=== PATIENT | male | born 1970 | race Caucasian/White ===

== ENCOUNTER 2022-06-29 22:21 | Emergency (ER) | payer SELFPAY ==
[~2022-06-29] VITALS: Ht 180.3 cm; Wt 93.0 kg
[2022-06-30 00:13] VITALS: BP 141/86
[2022-06-30] MEDS ORDERED: CEPH500C2 PO (00:42)
[2022-06-30] MEDS ORDERED: SULF1TAB48 PO (00:42)
[2022-06-30] MEDS ORDERED: SULFAMETH/TRIMETH 800/160 MG 1 UDTAB TABLET ONE (00:44)
[2022-06-30] MEDS ORDERED: CEPHALEXIN MONOHYDRATE 500 MG CAPSULE PO ONE (00:44)
[2022-06-30] MEDS: SULFAMETH/TRIMETH 800/160 MG 1 UDTAB TABLET PO ONE (00:49)
[2022-06-30] MEDS: CEPHALEXIN MONOHYDRATE 500 MG CAPSULE PO ONE (00:49)
== END 2022-06-30 00:50 | disposition home or self-care (01) ==
LOC: ER 22:25
DX: L03.115 Cellulitis of right lower limb (principal)